=== PATIENT | female | born 1980 | race African-American/Black ===

== ENCOUNTER 2018-09-17 11:46 | Emergency (ER) | payer MEDICAID ==
[~2018-09-17] VITALS: Ht 170.2 cm; Wt 54.0 kg
[~2018-09-17 11:46] MED LIST: ALBUTEROL IH
[2018-09-17 12:40] LABS: BASOPHILS % 1.6 % (0.0-2.0); EOSINOPHILS % 0.4 % (0.0-5.0); HEMATOCRIT. 45.9 % (36.0-48.0); HEMOGLOBIN. 15.5 g/dL (12.0-16.0); LYMPHOCYTES % 31.6 % (20.0-50.0); MEAN CORPUSCULAR HEMOGLOBIN 31.4 pg (28.0-32.0); MEAN PLATELET VOLUME 8.1 fl (7.4-10.4); MONOCYTES % 7.5 % (2.0-8.0); NEUTROPHILS % 58.9 % (40.0-76.0); PLATELET 316 x1000/uL (130-400); RED BLOOD CELL COUNT 4.94 mill/uL (4.2-5.4); RED CELL DISTRIBUTION WIDTH 13.3 % (11.6-14.6)
[2018-09-17 12:47] LABS: CHLORIDE 105 mEq/L (98-107)
[2018-09-17 12:48] LABS: PROTHROMBIN TIME 10.3 sec (9.1-11.1)
[2018-09-17 14:02] VITALS: BP 136/72
== END 2018-09-17 14:02 | disposition home or self-care (01) ==
LOC: ER 11:46
DX: R00.2 Palpitations (principal); R42 Dizziness and giddiness; M54.9 Dorsalgia, unspecified; I45.6 Pre-excitation syndrome; J45.909 Unspecified asthma, uncomplicated
CPT/HCPCS: 36415; 71045; 81025; 84484; 93005; 99284